=== PATIENT | male | born 1950 | race Asian ===

== ENCOUNTER → 2017-12-10 | Outpatient (CLI) | payer OTHER ==
[~2017-12-10] MED LIST: CALCIUM CARBONATE; ENTECAVIR; MULTIPLE VITAMI1 TAB PO; MVI PO; NEXIUM PO; PROGRAF; PROGRAF1 MG PO; VIREAD PO
== END ==
LOC: COL.RAD 09:00
DX: Z48.23 Encounter for aftercare following liver transplant (principal); Z90.49 Acquired absence of other specified parts of digestive tract

== ENCOUNTER → 2023-01-12 | Outpatient (CLI) | payer BC | LOC: COL.RAD 07:03 → EDSEX 07:03 → COL.RAD 07:30 | DX: R94.5 Abnormal results of liver function studies (principal) ==